=== PATIENT | female | born 1985 | race Caucasian/White ===

== ENCOUNTER 2021-05-18 20:41 | Emergency (ER) | payer BC ==
[2021-05-18] MEDS ORDERED: Sodium Chloride 0.9% 1000 ML 1,000 ML IV SCH (21:00)
[2021-05-18] MEDS ORDERED: Sodium Chloride 0.9% 1000 ML 1,000 ML ONE (21:05)
[2021-05-18] MEDS ORDERED: APRESOLINE 20 MG/ML INJ ONE (21:05)
[2021-05-18] MEDS: APRESOLINE 20 MG/ML INJ IV PRN ×2 (21:08→21:50)
[2021-05-18 21:33] LABS: Hematocrit 31.8 % (35-47); Hemoglobin 10.3 gm/dl (12.0-16.0); Mean Cell Volume 89.6 fl (78-100); Mean Corpuscular Hgb Concent. 32.4 g/dl (32-36); Mean Platelet Volume 9.4 fl (7.5-11.0); Platelet Count 405 K/mm3 (150-450); Red Blood Count 3.55 M/mm3 (4.1-5.4); Red Cell Distribution Width 13.6 % (11.5-14.0); White Blood Count 12.7 K/mm3 (4.0-10.5)
[2021-05-18 21:39] LABS: INR 0.99 (0.8-3.0); PROTIME 11.7 SECONDS (9.4-12.5)
[2021-05-18 21:42] LABS: PTT 32.3 SECONDS (25.1-36.5)
[2021-05-18 21:53] LABS: ALBUMIN 3.8 g/dL (3.5-5.0); ALKALINE PHOSPHATASE 82 U/L (38-126); AMYLASE 76 U/L (30-110); ANION GAP 17.5 MEQ/L (5-15); BLOOD UREA NITROGEN 18 mg/dL (7-17); CHLORIDE 109 mmol/L (98-107); Calcium 9.2 mg/dL (8.4-10.2); Carbon Dioxide 17 mmol/L (22-30); EST GLOMERULAR FILTRATION RATE > 60.0 ML/MIN; Glucose 88 mg/dL (74-106); LDH-LACTATE DEHYDROGENASE 231 U/L (120-246); LIPASE 124 U/L (23-300); MAGNESIUM 1.6 mg/dL (1.6-2.3); NT PRO BNP 1980 pg/mL (0-450); Potassium 3.4 mmol/L (3.5-5.1); SGOT/AST 26 U/L (14-36); SGPT/ALT 19 U/L (0-35); SODIUM 141 mmol/L (137-145); Total Protein 6.7 g/dL (6.3-8.2)
--- NOTE | 2021-05-18 22:01 | ERPHSYRPT ---
- History of Present Illness Time Seen by Provider: 05/18/21 21:10 Source: patient Exam Limitations: no limitations Patient Subjective Stated Complaint: C/O headache and high blood pressure Triage Nursing Assessment: Denies chest pain and SOB. No SOB noted by this nurse. States no pain but did have a headache prior to arrival. Gave a week ago today. High blood pressure started at 32 weeks and was started on routine HTN medications at that time. The medication has been effective in managing B/P until tonight. Denies visual changes. Physician History: Patient is a 35-year-old female who is 1 week . She had several weeks of gestational hypertension which was treated with labetalol 200 mg twice a day successfully until this evening the tonight she developed a headache took her blood pressure and found it elevated to 206/120. She denies any pain other than the headache. Timing/Duration: today Activities at Onset: none Quality: throbbing Location: other (Headache) Chest Pain Radiation: no radiation Severity of Pain-Max: mild Severity of Pain-Current: mild Modifying Factors: Improves With: nothing Nitro Today/Relief: no nitro taken today Aspirin Treatment Today: no aspirin today Associated Symptoms: headaches Prior Chest Pain/Cardiac Workup: no prior chest pain, no prior cardiac workup Allergies/Adverse Reactions: No Known Drug Allergies Allergy (Unverified 12/11/14 05:09) Home Medications: Labetalol HCl 200 mg PO BID 05/18/21 [History] Hx Tetanus, Diphtheria Vaccination/Date Given: Yes Hx Influenza Vaccination/Date Given: Yes Hx Pneumococcal Vaccination/Date Given: No Immunizations Up to Date: Yes Travel Risk - International Travel Have you traveled outside of the country in past 3 weeks: No - Coronavirus Screening Are you exhibiting any of the following symptoms?: No - Vaccine Status Have you recieved a Covid-19 vaccination: Yes Product Inspection Supervisor: Unknown - Vaccination Dates Dates if Unknown: unknown - Review of Systems Constitutional: No Fever, No Chills Eyes: No Symptoms Ears, Nose, & Throat: No Symptoms Respiratory: No Cough, No Dyspnea Cardiac: No Chest Pain, No Edema, No Syncope Abdominal/Gastrointestinal: No Abdominal Pain, No Nausea, No Vomiting, No Diarrhea Genitourinary Symptoms: No Dysuria Musculoskeletal: No Back Pain, No Neck Pain Skin: No Rash Neurological: Headache, No Dizziness, No Focal Weakness, No Sensory Changes Psychological: No Symptoms Endocrine: No Symptoms All Other Systems: Reviewed and Negative - Past Medical History Pertinent Past Medical History: No Neurological History: No Pertinent History ENT History: No Pertinent History Cardiac History: Hypertension Respiratory History: No Pertinent History Endocrine Medical History: No Pertinent History Musculoskeletal History: No Pertinent History GI Medical History: No Pertinent History History: No Pertinent History Psycho-Social History: No Pertinent History Female Reproductive Disorders: No Pertinent History - Past Surgical History Past Surgical History: No - Social History Smoking Status: Current some day smoker Exposure to second hand smoke: No Drug Use: none Patient Lives Alone: No - Female History Hx Last Menstrual Period: unknown Hx Now: No - Nursing Vital Signs Nursing Vital Signs: Initial Vital Signs Temperature 97.9 F 05/18/21 20:57 Pulse Rate 90 05/18/21 20:57 Respiratory Rate 20 05/18/21 20:57 Blood Pressure 206/120 05/18/21 20:57 O2 Sat by Pulse Oximetry 98 05/18/21 20:57 Pain Scale Pain Intensity 0 - Physical Exam General Appearance: no apparent distress, alert Eye Exam: PERRL/EOMI, eyes nml inspection Ears, Nose, Throat Exam: normal ENT inspection, moist mucous membranes Neck Exam: normal inspection, non-tender, supple Respiratory Exam: normal breath sounds, lungs clear, No respiratory distress Cardiovascular Exam: regular rate/rhythm, normal heart sounds, No edema Gastrointestinal/Abdomen Exam: soft, No tenderness, No mass Back Exam: normal inspection, No CVA tenderness, No vertebral tenderness Extremity Exam: normal inspection, normal range of motion Neurologic Exam: alert, oriented x 3, cooperative, normal mood/affect, nml cerebellar function, sensation nml, other (Hyperreflexia), No motor deficits Skin Exam: normal color, warm, dry Lymphatic Exam: No adenopathy SpO2 Interpretation: normal SpO2: 98 O2 Delivery: Room Air - Course Nursing assessment & vital signs reviewed: Yes EKG Interpreted by Me: RATE ([id number]), Sinus Rhythm, NORMAL AXIS, NORMAL INTERVALS, NORMAL QRS, Non-specific ST Changes Ordered Tests: Active Orders 24 hr Category Date Time Status EKG-ER Only STAT Care 05/18/21 21:04 Active IV Insertion STAT Care 05/18/21 21:04 Active AMYLASE Stat Lab 05/18/21 21:00 Completed CBC W DIFF Stat Lab 05/18/21 21:00 Completed CMP Stat Lab 05/18/21 21:00 Completed CULTURE,URINE Stat Lab 05/18/21 21:38 Received D-DIMER QUANTITATIVE Stat Lab 05/18/21 21:00 Completed LDH-LACTATE DEHYDROGENASE Stat Lab 05/18/21 21:00 Completed LIPASE Stat Lab 05/18/21 21:00 Completed Lactic Acid Stat Lab 05/18/21 20:56 Completed MAGNESIUM Stat Lab 05/18/21 21:00 Completed Manual Differential NC Stat Lab 05/18/21 21:00 Completed NT PRO BNP Stat Lab 05/18/21 21:00 Completed PROTIME WITH INR Stat Lab 05/18/21 21:00 Completed PTT Stat Lab 05/18/21 21:00 Completed TROPONIN Q3H Lab 05/18/21 21:00 Completed TROPONIN Q3H Lab 05/19/21 00:00 Ordered TROPONIN Q3H Lab 05/19/21 03:00 Ordered TROPONIN Q3H Lab 05/19/21 06:00 Ordered TROPONIN Q3H Lab 05/19/21 09:00 Ordered UA W/RFX UR CULTURE Stat Lab 05/18/21 21:38 Completed Medication Summary Generic Name Dose Route Start Last Admin Trade Name Freq PRN Reason Stop Dose Admin Hydralazine HCl 5 mg 05/18/21 21:02 05/18/21 21:50 Apresoline 20 Mg/Ml Inj IV 06/17/21 21:01 5 mg [id number] PRN Administration HYPERTENSION Sodium Chloride 1,000 mls @ 50 mls/hr 05/18/21 21:00 05/18/21 21:07 Sodium Chloride 0.9% 1000 Ml IV 06/17/21 20:59 50 mls/hr .Q20H HUGO Administration Nifedipine 30 mg 05/19/21 22:38 05/18/21 23:00 Adalat Cc 30 Mg Tablet PO 05/19/21 22:39 30 mg STAT ONE Administration Discontinued Medications Generic Name Dose Route Start Last Admin Trade Name Freq PRN Reason Stop Dose Admin Nifedipine Confirm 05/18/21 22:53 Adalat Cc 30 Mg Tablet Administered 05/18/21 22:54 Dose 60 mg PO .STK-MED ONE Lab/Rad Data: Laboratory Result Diagrams 05/18/21 21:00 05/18/21 21:00 Laboratory Results 05/18/21 05/18/21 05/18/21 Range/Units 21:38 21:00 21:00 WBC (4.0-10.5) K/mm3 RBC (4.1-5.4) M/mm3 Hgb (12.0-16.0) gm/dl Hct (35-47) % MCV (78-100) fl MCH (26-32) pg MCHC (32-36) g/dl RDW (11.5-14.0) % Plt Count (150-450) K/mm3 MPV (7.5-11.0) fl Segmented Neutrophils (36.0-66.0) % Band Neutrophils (0.0-2.0) % Lymphocytes (Manual) (24-44) % Monocytes (Manual) (0.0-12.0) % Eosinophils (Manual) (0.00-3.0) % Basophils (Manual) (0.0-1.0) % Metamyelocytes % Platelet Estimate (NORMAL) RBC Morphology PT 11.7 (9.4-12.5) SECONDS INR 0.99 (0.8-3.0) APTT 32.3 (25.1-36.5) SECONDS D-Dimer 886 H* (215-500) ng/mL Sodium (137-145) mmol/L Potassium (3.5-5.1) mmol/L Chloride (98-107) mmol/L Carbon Dioxide (22-30) mmol/L Anion Gap (5-15) MEQ/L BUN (7-17) mg/dL Creatinine (0.52-1.04) mg/dL Estimated GFR ML/MIN Glucose (74-106) mg/dL Lactic Acid (0.4-2.0) Calcium (8.4-10.2) mg/dL Magnesium (1.6-2.3) mg/dL Total Bilirubin (0.2-1.3) mg/dL AST (14-36) U/L ALT (0-35) U/L Alkaline Phosphatase (38-126) U/L Lactate Dehydrogenase (120-246) U/L Troponin I < 0.012 (0.000-0.034) ng/mL NT-Pro-B Natriuret Pep (0-450) pg/mL Serum Total Protein (6.3-8.2) g/dL Albumin (3.5-5.0) g/dL Amylase (30-110) U/L Lipase (23-300) U/L Urine Color YELLOW (YELLOW) Urine Appearance SLIGHTLY CLOUDY (CLEAR) Urine pH 7.0 (5-6) Ur Specific [place] 1.003 (1.005-1.025) Urine Protein 100 (Negative) Urine Ketones NEGATIVE (NEGATIVE) Urine Blood LARGE (0-5) Ted/ul Urine Nitrite NEGATIVE (NEGATIVE) Urine Bilirubin NEGATIVE (NEGATIVE) Urine Urobilinogen NEGATIVE (0-1) mg/dL Ur Leukocyte Esterase LARGE (NEGATIVE) Urine WBC (Auto) >100 (0-5) /HPF Urine RBC (Auto) >101 (0-2) /HPF U Epithel Cells (Auto) NONE (FEW) /HPF Urine Bacteria (Auto) FEW (NEGATIVE) /HPF Urine Culture Reflexed YES (NO) Urine Glucose NEGATIVE (NEGATIVE) mg/dL 05/18/21 05/18/21 05/18/21 Range/Units 21:00 21:00 20:56 WBC 12.7 H (4.0-10.5) K/mm3 RBC 3.55 L (4.1-5.4) M/mm3 Hgb 10.3 L (12.0-16.0) gm/dl Hct 31.8 L (35-47) % MCV 89.6 (78-100) fl MCH 29.0 (26-32) pg MCHC 32.4 (32-36) g/dl RDW 13.6 (11.5-14.0) % Plt Count 405 (150-450) K/mm3 MPV 9.4 (7.5-11.0) fl Segmented Neutrophils 69 H (36.0-66.0) % Band Neutrophils 1 (0.0-2.0) % Lymphocytes (Manual) 21 L (24-44) % Monocytes (Manual) 4 (0.0-12.0) % Eosinophils (Manual) 2 (0.00-3.0) % Basophils (Manual) 1 (0.0-1.0) % Metamyelocytes 2 % Platelet Estimate NORMAL (NORMAL) RBC Morphology NORMAL PT (9.4-12.5) SECONDS INR (0.8-3.0) APTT (25.1-36.5) SECONDS D-Dimer (215-500) ng/mL Sodium 141 (137-145) mmol/L Potassium 3.4 L (3.5-5.1) mmol/L Chloride 109 H (98-107) mmol/L Carbon Dioxide 17 L (22-30) mmol/L Anion Gap 17.5 H (5-15) MEQ/L BUN 18 H (7-17) mg/dL Creatinine 0.80 (0.52-1.04) mg/dL Estimated GFR > 60.0 ML/MIN Glucose 88 (74-106) mg/dL Lactic Acid 0.6 (0.4-2.0) Calcium 9.2 (8.4-10.2) mg/dL Magnesium 1.6 (1.6-2.3) mg/dL Total Bilirubin 0.20 (0.2-1.3) mg/dL AST 26 (14-36) U/L ALT 19 (0-35) U/L Alkaline Phosphatase 82 (38-126) U/L Lactate Dehydrogenase 231 (120-246) U/L Troponin I (0.000-0.034) ng/mL NT-Pro-B Natriuret Pep 1980 H (0-450) pg/mL Serum Total Protein 6.7 (6.3-8.2) g/dL Albumin 3.8 (3.5-5.0) g/dL Amylase 76 (30-110) U/L Lipase 124 (23-300) U/L Urine Color (YELLOW) Urine Appearance (CLEAR) Urine pH (5-6) Ur Specific [place] (1.005-1.025) Urine Protein (Negative) Urine Ketones (NEGATIVE) Urine Blood (0-5) Ted/ul Urine Nitrite (NEGATIVE) Urine Bilirubin (NEGATIVE) Urine Urobilinogen (0-1) mg/dL Ur Leukocyte Esterase (NEGATIVE) Urine WBC (Auto) (0-5) /HPF Urine RBC (Auto) (0-2) /HPF U Epithel Cells (Auto) (FEW) /HPF Urine Bacteria (Auto) (NEGATIVE) /HPF Urine Culture Reflexed (NO) Urine Glucose (NEGATIVE) mg/dL - Progress Progress: improved Air Movement: good Progress Note: 05/19/21 00:03 Patient was initially treated with hydralazine in addition to her labetalol however this resulted in a very slow decline in systolic and diastolic blood pressures but we did get to a level of 170/100 at that point we switched to nifedipine CR 30 mg she was given a dose here and a dose to take home with her her headache was much improved. Blood Culture(s) Obtained: No Antibiotics given: No - Departure Departure Disposition: Home Clinical Impression: Hypertension Condition: Stable Critical Care Time: No Referrals: DOCTOR,NO FAMILY [Primary Care Provider] - Instructions: High Blood Pressure (DC) Prescriptions: Nifedipine Xl 30 mg [Adalat CC 30 MG TABLET] 30 mg PO DAILY 30 Days #30 tablet
[2021-05-18 22:05] LABS: Appearance SLIGHTLY CLOUDY (CLEAR); Bacteria FEW /HPF (NEGATIVE); Bilirubin NEGATIVE (NEGATIVE); Blood LARGE Ery/ul (0-5); Glucose NEGATIVE (NEGATIVE); Ketones NEGATIVE (NEGATIVE); Leukocyte Esterase LARGE (NEGATIVE); Nitrite NEGATIVE (NEGATIVE); Protein,Urine Dip 100 (Negative); Specific Gravity 1.003 (1.005-1.025); Urobilinogen NEGATIVE mg/dL (0-1); WBC >100 /HPF (0-5)
[2021-05-18 22:06] LABS: RBC >101 /HPF (0-2)
[2021-05-18 22:30] LABS: BAND 1 % (0.0-2.0); Basophil 1 % (0.0-1.0); Eosinophil 2 % (0.00-3.0); Lymphocytes 21 % (24-44); Metamyelocyte 2 %; Monocyte 4 % (0.0-12.0); Neutrophils 69 % (36.0-66.0); Total Cells Counted 100
[2021-05-18 22:31] LABS: Platelet Estimate NORMAL (NORMAL)
[2021-05-18] MEDS ORDERED: Adalat CC 30 MG TABLET PO ONE (22:53)
[2021-05-19 00:21] VITALS: BP 182/99; PULSE 75; O2SAT 95
[2021-05-19] MEDS ORDERED: Adalat CC 30 MG TABLET PO ONE (22:38)
== END 2021-05-19 00:50 | disposition home or self-care (01) ==
LOC: ED 20:41
DX: I10 Essential (primary) hypertension (principal)
CPT/HCPCS: 36000; 36415; 80053; 81001; 82150; 83605; 83615; 83690; 83735; 83880; 84484; 85025; 85379; 85610; 85730; 87086; 93005; 96374; 96376; 99284; J0360; A9270-GY